=== PATIENT | male | born 1945 | race Hispanic/Latino ===

== ENCOUNTER 2017-08-14 11:49 | Outpatient (CLI) | payer MEDICARE, OTHER ==
--- NOTE | 2017-08-14 15:05 | XRay Report ---
BILATERAL HIPS WITH PELVIS, 3 VIEWS: History: Pain. Findings: Bone mineralization is within normal limits. There is no evidence for fracture, dislocation or pelvic diastasis. No advanced joint pathology is detected. The soft tissues are unremarkable. Impression: Unremarkable exam.
== END 2017-08-14 11:50 | disposition home or self-care (01) ==
LOC: SPVIMAG 11:49
PROVIDERS: ATTEND Internal Medicine
DX: M25.551 Pain in right hip (principal); M25.552 Pain in left hip
CPT/HCPCS: 73521